=== PATIENT | male | born 1975 | race Caucasian/White ===

== ENCOUNTER 2023-04-21 13:00 | Inpatient (IN) ==
[2023-04-21 13:52] LABS: ABS Basophils 0.1 10^3/uL (0.0-0.1); ABS Eosinophils 0.1 10^3/uL (0.0-0.5); ABS Lymphocytes 0.9 10^3/uL (1.0-4.8); ABS Monocytes 0.5 10^3/uL (0.0-1.1); ABS Neutrophils 3.9 10^3/uL (1.5-7.6); ABS Nucleated RBC 0.01 10^3/ul; Hematocrit 45.7 % (38-53); Hemoglobin 15.5 g/dL (13.2-16.3); Lymphocyte % 17.1 %; Mean Corpuscular Hemoglobin 26.3 pg (27-33); Mean Corpuscular Hgb Conc 33.8 g/dL (31-36); Mean Corpuscular Volume 77.8 fL (80-97); Mean Platelet Volume 8.9 fL (7.5-11.2); Nucleated Red Blood Cells % 0.2 %/100WBC (0.0-0.8); Platelet Count 240 10^3/uL (150-450); Red Blood Count 5.88 10^6/uL (4.06-5.63); Red Cell Distribution Width 13.8 % (12-17); White Blood Count 5.4 10^3/uL (3.6-10.2)
[2023-04-21 14:11] LABS: ALT 15 U/L (7-52); AST 12 U/L (13-39); Albumin 4.5 g/dL (3.2-5.2); Albumin/Globulin Ratio 1.7 (1-3); Alkaline Phosphatase 47 U/L (35-149); Anion Gap 7 mmol/L (2-16); Blood Urea Nitrogen 13 mg/dL (6-24); CO2 Carbon Dioxide 24 mmol/L (22-32); Calcium 9.4 mg/dL (8.6-10.3); Chloride 106 mmol/L (101-111); Creatinine, Serum 1.06 mg/dL (0.67-1.17); Globulin 2.6 g/dL (2-4); Glucose 93 mg/dL (70-100); Sodium 137 mmol/L (135-145); Total Bilirubin 0.5 mg/dL (0.2-1.0); Total Protein 7.1 g/dL (6.4-8.9)
[2023-04-21 14:16] LABS: Urine Appearance Clear; Urine Bilirubin Negative (Negative); Urine Blood Negative (Negative); Urine Color Yellow; Urine Glucose Negative (Negative); Urine Ketones Negative (Negative); Urine Nitrite Negative (Negative); Urine Protein Negative (Negative); Urine Specific Gravity 1.017 (1.002-1.030); Urine Urobilinogen Negative (Negative)
[2023-04-21 14:17] LABS: Acetaminophen < 15 mcg/mL; Alcohol, S < 13 mg/dL (<13); Salicylate < 2.50 mg/dL (<30)
[2023-04-21 14:18] LABS: Urine Benzodiazepine Screen None Detected (None Detect); Urine Cannabinoids Screen None Detected (None Detect); Urine Opiates Screen None Detected (None Detect)
[2023-04-21 14:33] LABS: TSH Ultra Thyroid Stim Horm 2.84 mcIU/mL (0.34-5.60)
[2023-04-21] MEDS ORDERED: Al Hydrox/Mg Hydrox/Simet LIQ 30 ML UDC PO PRN (16:28)
[2023-04-21] MEDS ORDERED: Nicotine GUM 2MG FRUIT FLAVOR PO PRN (17:00)
[2023-04-21] MEDS: CMC:FluvoxaMINE 50 mg TAB (NF) PO SCH (19:01)
[2023-04-22] MEDS ORDERED: Omeprazole 10 mg CAP (NF) PO SCH (09:00)
[2023-04-22 09:03] LABS: HDL Cholesterol 42.6 mg/dL
[2023-04-22] MEDS: Vitamin THERAPEUTIC TAB PO SCH (09:46)
[2023-04-22] MEDS: CMC:FluvoxaMINE 50 mg TAB (NF) PO SCH ×2 (09:47→19:37)
[2023-04-22] MEDS: CMCS: Vortioxetine 10 mg TAB (NF) PO SCH (13:12)
[2023-04-23 09:00] VITALS: BP 147/88
[2023-04-23] MEDS: CMCS: Vortioxetine 10 mg TAB (NF) PO SCH (09:48)
[2023-04-23] MEDS: Vitamin THERAPEUTIC TAB PO SCH (09:48)
[2023-04-23] MEDS: CMC:FluvoxaMINE 50 mg TAB (NF) PO SCH ×2 (12:03→20:48)
[2023-04-23] MEDS ORDERED: CMCS: Vortioxetine 10 mg TAB (NF) PO ONE (13:30)
[2023-04-24] MEDS ORDERED: CMCS: Vortioxetine 10 mg TAB (NF) PO SCH (09:00)
[2023-04-24] MEDS: Vitamin THERAPEUTIC TAB PO SCH (09:17)
[2023-04-24] MEDS: CMC:FluvoxaMINE 50 mg TAB (NF) PO SCH (09:17)
== END 2023-04-24 11:30 | disposition home or self-care (01) | DRG 751 ==
LOC: ED 13:00 → EDHOLD 16:08 → BSU 17:21
PROVIDERS: ADMIT Psychiatry & Neurology Addiction Psychiatry; ATTEND Student in an Organized Health Care Education/Training Program